=== PATIENT | male | born 1980 | race Caucasian/White ===

== ENCOUNTER 2024-01-06 12:01 | Emergency (ER) | payer BC ==
[~2024-01-06] VITALS: Ht 180.3 cm; Wt 77.1 kg
[2024-01-06] MEDS ORDERED: ONDANSETRON HCL/PF 4 MG/2 ML VIAL ONE (12:18)
[2024-01-06] MEDS: IV NS 0.9% 1,000 ML BAG IV ONE (12:20)
[2024-01-06] MEDS: FAMOTIDINE/PF INJ 20 MG/2 ML VIAL IV ONE (12:20)
[2024-01-06] MEDS: ONDANSETRON HCL/PF 4 MG/2 ML VIAL IVP ONE (12:23)
[2024-01-06 12:35] LABS: BASOPHILS % (AUTO) 0.3 % (0.0-2.0); EOSINOPHILS # (AUTO) 0.2 K/uL (0.0-0.7); EOSINOPHILS % (AUTO) 1.6 % (0.0-6.0); HEMATOCRIT 43 % (39-51); HEMOGLOBIN 14.4 g/dL (13.5-17.5); LYMPHOCYTES # (AUTO) 1.1 K/uL (0.8-4.8); LYMPHOCYTES % (AUTO) 10.7 % (20.0-44.0); MEAN CORPUSCULAR HEMOGLOBIN 29 PG (26.0-33.0); MEAN CORPUSCULAR HGB CONC 34 g/dl (31.0-36.0); MEAN CORPUSCULAR VOLUME 88 fL (80-96); MONOCYTES # (AUTO) 0.6 K/uL (0.1-1.30); MONOCYTES % (AUTO) 6.1 % (2.0-12.0); NEUTROPHILS # (AUTO) 8.2 K/uL (1.8-8.9); NEUTROPHILS % (AUTO) 81.3 % (43.0-81.0); PLATELET COUNT (AUTO) 248 K/uL (150-450); RED CELL DISTRIBUTION WIDTH 13.4 % (11.5-15.0)
[2024-01-06 12:54] LABS: ALANINE AMINOTRANSFERASE 30 U/L (12-78); ALBUMIN 4.1 g/dL (3.4-5.0); ALKALINE PHOSPHATASE 67 U/L (46-116); ASPARTATE AMINOTRANSFERASE 27 U/L (15-37); BILIRUBIN,DIRECT 0.2 mg/dL (0.0-0.2); BILIRUBIN,TOTAL 0.8 mg/dL (0.2-1.0); CALCIUM, SERUM 9.8 mg/dL (8.5-10.1); CARBON DIOXIDE 30 mmol/L (21-32); CHLORIDE 100 mmol/L (98-107); CREATININE 1.1 mg/dL (0.6-1.3); GLUCOSE 109 mg/dL (74-106); LIPASE 33 U/L (16-77); POTASSIUM 4.2 mmol/L (3.5-5.1); SODIUM SERUM 138 mmol/L (136-145); TOTAL PROTEIN, SERUM 8.4 g/dL (6.4-8.2); UREA NITROGEN, BLOOD 17 mg/dL (7-18)
[2024-01-06] MEDS ORDERED: ONDA4TAB5 PO (13:26)
[2024-01-06 13:39] VITALS: BP 110/81; TEMP 98.1; O2SAT 100
== END 2024-01-06 13:39 | disposition home or self-care (01) ==
LOC: ER 12:05
DX: R11.2 Nausea with vomiting, unspecified (principal); Z79.899 Other long term (current) drug therapy
CPT/HCPCS: 99284; 96374; 96361; 96375; 93005 ×2; 85025; 80048; 83690; 80076; 36415; 84484; 82962; J2405; J7030